=== PATIENT | female | born 1985 | race American Indian/Alaskan Native ===

== ENCOUNTER 2018-12-18 10:52 | Outpatient (CLI) | payer MEDICAID ==
--- NOTE | 2018-12-18 14:16 | Mammography Report ---
BILATERAL DIGITAL SCREENING MAMMOGRAM WITH CAD INDICATION: Baseline screening. TECHNIQUE: Digital bilateral 2D mammography was obtained in the craniocaudal and mediolateral obliq ue projections. This examination was interpreted with the benefit of Computer-Aided Detection analysi s. FINDINGS: Breast Density: The breasts are heterogeneously dense, which may obscure small masses. There is no evidence of dominant mass, suspicious calcifications or architectural distortion in eith er breast. IMPRESSION: BI-RADS Category 1: Negative. No mammographic evidence of malignancy. Recommend routine screening m ammography in one year. A "normal" or negative report should not discourage follow up or biopsy of a clinically significant f inding. A written summary of these findings will be mailed to the patient. The patient will be entered into a mammography reporting system which will generate a reminder letter for the patient's next appointmen t at the appropriate interval. The [employer] recommends yearly mammograms starting at age 40 and continuing as l mary as a woman is in good health. Breast MRI is recommended for women with an approximate 20-25% or greater lifetime risk of breast cancer, including women with a strong family history of breast or ova kiel cancer or who have been treated for Hodgkin's disease. Signer Name: Alfonso Payton MD Signed: 12/18/2018 2:12 PM Workstation Name: [id number]
== END 2018-12-18 10:53 | disposition home or self-care (01) ==
LOC: SPVWC 10:52
PROVIDERS: ATTEND Family Medicine
DX: Z12.31 Encounter for screening mammogram for malignant neoplasm of breast (principal)
CPT/HCPCS: 77067

== ENCOUNTER 2019-08-22 06:12 | Emergency (ER) | payer MEDICAID ==
[2019-08-22 08:05] VITALS: BP 162/106
--- NOTE | 2019-08-22 08:37 | Emergency Department Report ---
ED Headache HPI - General Chief Complaint: Pain General Stated Complaint: SHARP PAINS IN HEAD AND BODY Time Seen by Provider: 08/22/19 08:30 - History of Present Illness Initial Comments: This is a 34-year-old female with a history of migraine headache who presents the ED complaining of onset of headache that began about a month ago. Patient states that pain is become consistently aching and throbbing localized to the frontal and occipital regions. Patient states that she is not taking any medication because she does not like to take medication for pain. Patient states she is just been dealing with the pain. Patient states that she started experiencing some body aches and was unable to go to work this week. Patient does exhibit some nausea with no vomiting. she denies any head trauma, injuries, fall. Timing/Duration: other Quality: mild, achy, throbbing Head Injury Location: frontal, occipital Recent Head Trauma: no recent headache/trauma Associated Symptoms: denies symptoms, nasal congestion. denies: fatigue, facial pain, nausea/vomiting, stiff neck Allergies/Adverse Reactions: Allergies No Known Allergies Allergy (Unverified 08/24/13 07:43) Home Medications: Ambulatory Orders Pnv,Calcium 72/Iron/Folic Acid [Pnv Plus Multivit Tab] 1 tab PO DAILY 08/24/13 Butalb/Acetamin/Caff 50-325-40 [Fioricet 50-325-40] 1 tab PO Q8HR PRN #30 tablet 08/22/19 ED Review of Systems ROS: Stated complaint: SHARP PAINS IN HEAD AND BODY Other details as noted in HPI Comment: All other systems reviewed and negative Constitutional: no symptoms reported ED Past Medical Hx - Past Medical History Hx Hypertension: No Hx Congestive Heart Failure: No Hx Diabetes: No Hx Deep Vein Thrombosis: No Hx Renal Disease: No Hx Sickle Cell Disease: No Hx Seizures: No Hx Asthma: No Hx COPD: No Hx HIV: No - Surgical History Past Surgical History?: No - Social History Smoking Status: Never Smoker Substance Use Type: Alcohol - Medications Home Medications: Home Medications Medication Instructions Recorded Confirmed Last Taken Type Pnv,Calcium 72/Iron/Folic Acid 1 tab PO DAILY 08/24/13 08/24/13 08/18/13 History [Pnv Plus Multivit Tab] Butalb/Acetamin/Caff 50-325-40 1 tab PO Q8HR PRN #30 tablet 08/22/19 Unknown Rx [Fioricet 50-325-40] ED Physical Exam - General Limitations: No Limitations General appearance: alert, in no apparent distress - Head Head exam: Present: atraumatic, normocephalic - Eye Eye exam: Present: normal appearance - ENT ENT exam: Present: mucous membranes moist - Neck Neck exam: Present: normal inspection - Respiratory Respiratory exam: Present: normal lung sounds bilaterally. Absent: respiratory distress - Cardiovascular Cardiovascular Exam: Present: regular rate, normal rhythm. Absent: systolic murmur, diastolic murmur, rubs, gallop - GI/Abdominal GI/Abdominal exam: Present: soft, normal bowel sounds - Extremities Exam Extremities exam: Present: normal inspection - Back Exam Back exam: Present: normal inspection - Neurological Exam Neurological exam: Present: alert, oriented X3, CN II-XII intact, normal gait - Expanded Neurological Exam Expanded Patient oriented to: Present: person, place, time Speech: Present: fluid speech Cranial nerves: Facial Sensation: Normal Cerebellar function: Finger to Nose: Normal Sensory exam: Upper Extremity Light Touch: Normal, Lower Extremity Light Touch: Normal Best Eye Response (Tayler): (4) open spontaneously Best Motor Response (Tayler): (6) obeys commands Best Verbal Response (Tayler): (5) oriented Holliday Total: 15 - Psychiatric Psychiatric exam: Present: normal affect, normal mood - Skin Skin exam: Present: warm, dry, intact, normal color. Absent: rash ED Course Vital Signs 08/22/19 06:26 Temperature 98.3 F Pulse Rate 81 Respiratory 12 Rate Blood Pressure 162/106 O2 Sat by Pulse 100 Oximetry ED Medical Decision Making - Medical Decision Making This 34-year-old female with a history of migraine presents with onset of migraine headache. Patient states that she really does not like taking meds so she did not take Motrin. Or any other pain reliever. Patient states that Critical care attestation.: If time is entered above; I have spent that time in minutes in the direct care of this critically ill patient, excluding procedure time. ED Disposition Clinical Impression: Migraine headache with aura, Acute headache Disposition: DC-01 TO HOME OR SELFCARE Is pt being admited?: No Does the pt Need Aspirin: No Condition: Stable Instructions: Acute Headache (ED), Migraine Headache (ED) Additional Instructions: Make sure to follow up with the primary care physician as discussed. Take all your medications as you've been prescribed. If you have any worsening symptoms or develop new symptoms please return to ED immediately. Prescriptions: Butalb/Acetamin/Caff 50-325-40 [Fioricet 50-325-40] 1 tab PO Q8HR PRN #30 tablet PRN Reason: Headache Referrals: PRIMARY CARE, [Primary Care Provider] - 3-5 Days [facility] [Provider Group] - 3-5 Days [facility] [Outside] - 3-5 Days [facility] [Outside] - 3-5 Days Forms: Work/School Release Form(ED) Time of Disposition: 08:42
== END 2019-08-22 08:51 | disposition home or self-care (01) ==
LOC: ED 06:12
DX: G43.109 Migraine with aura, not intractable, without status migrainosus (principal); Z79.899 Other long term (current) drug therapy
CPT/HCPCS: 93005; 93010; 99282

== ENCOUNTER 2021-04-01 10:58 | Inpatient (IN) | payer MEDICAID ==
[2021-04-01 13:18] LABS: Hematocrit 31.2 % (30.3-42.9); Hemoglobin 9.9 gm/dl (10.1-14.3); Mean Corpuscular HGB Conc 32 % (30-34); Mean Corpuscular Volume 87 fl (79-97); Platelet Count 331 K/mm3 (140-440); Red Blood Count 3.59 M/mm3 (3.65-5.03)
[2021-04-01 13:27] LABS: Bilirubin,Urine NEG (Negative); Blood,Urine NEG (Negative); Color,Urine Yellow (Yellow); Mucus,Urine FEW /HPF
[2021-04-01 13:41] LABS: Alanine Aminotransferase 8 units/L (7-56); Uric Acid 4.6 mg/dL (3.5-7.6)
[2021-04-01] MEDS ORDERED: ePHEDrine SULFATE 50 MG/1 ML INJ IV PRN (15:02)
[2021-04-01] MEDS ORDERED: TERBUTALINE 1 MG/1 ML INJ SUB-Q PRN (15:02)
[2021-04-01] MEDS ORDERED: CARBOPROST TROMETHAMINE 250 MCG/1 ML INJ IM PRN (15:02)
[2021-04-01] MEDS ORDERED: ONDANSETRON 4 MG/2 ML INJ IV PRN (15:02)
[2021-04-01] MEDS ORDERED: fentaNYL 100 MCG/2 ML INJ IV PRN (15:02)
[2021-04-01] MEDS ORDERED: OXYTOCIN 10 UNIT/1 ML INJ IM PRN (15:02)
[2021-04-01] MEDS ORDERED: LOPERAMIDE 2 MG CAP PO PRN (15:02)
[2021-04-01] MEDS ORDERED: NALOXONE 0.4 MG/1 ML INJ IV PRN (15:02)
[2021-04-01] MEDS ORDERED: miSOPROStol 200 MCG TAB PR PRN (15:02)
[2021-04-01] MEDS ORDERED: ACETAMINOPHEN 325 MG TAB PO PRN (15:02)
[2021-04-01] MEDS ORDERED: PROMETHAZINE 25 MG RECT SUPP PR PRN (15:02)
[2021-04-01] MEDS ORDERED: LIDOCAINE (2%) 20 MG/1 ML VIAL 20 ML MDV INFILTRATI ONE (15:02)
[2021-04-01] MEDS ORDERED: MINERAL OIL 30 ML ORAL LIQD PO PRN (15:02)
[2021-04-01] MEDS ORDERED: BUTORPHANOL 2 MG/1 ML INJ IV PRN (15:02)
[2021-04-01] MEDS ORDERED: OXYTOCIN DRIP 30 UNITS/500 ML BAG IV SCH (16:00)
--- NOTE | 2021-04-01 16:18 | History and Physical Report ---
History of Present Illness Date of examination: 04/01/21 Date of admission: 04/01/21 10:59 Chief complaint: I'm here to be induced! History of present illness: Pt presents for IOL d/t elevated blood pressures @ term. Pt presented to her [facility] appointment on 03/31 and had an elevated blood pressure. Per Dr. Soto, the patient refused an IOL and left the office with her lab and next appointment slips. Of note, the patient has not been seen in the office since 33 weeks. When asked why, she stated that she "had a lot going on." EDC Calculations: 04/15/2021 Gestational Age: 38 weeks on admission. Past History : 3 Term Births: 2 Premature Births: 0 Living Children: 2 Para: 2 Mult. Births: 0 Prev : 0 Aborta: 0 Elect. Ab: 0 Spont. Ab: 0 Ectopics: 0 # 1 Delivery date: 06/2008 Weeks Gestation: term Delivery type: Anesthesia type: epidural Delivery location: [place] [facility] Sex: Male weight: 8-0 Comments: denies complications # 2 Delivery date: 08/24/2013 Weeks Gestation: 40 Delivery type: Vaginal Anesthesia type: epidural Delivery location: [facility] Infant Sex: female Comments: none Past Medical History: Reviewed history from 10/23/2012 and no changes required: Negative Past Medical History Past Surgical History: Reviewed history from 06/25/2020 and no changes required: negative Risk Factors: Smoked Tobacco Use: Never smoker Smokeless Tobacco Use: Never HIV high-risk behavior: no Caffeine use: 0 drinks per day Alcohol use: yes Type: occ Seatbelt use: 100 % Past Medical History Anesthesia Complications: negative Anemia: positive Autoimmune Disorder: negative Bleeding Disorder: negative Blood Transfusions: negative Breast Disease: negative Diabetes: negative Heart Disease: negative Hypertension: negative Hepatitis/Liver Disease: negative Kidney Disease/UTI: negative Neurologic/Epilepsy/Migraines: negative Phlebitis/Varicosities: negative Psychiatric: negative Pulmonary Disease/Asthma: negative Thyroid Disease: negative Hospitalizations: negative Surgery (Non-hvac service tech): negative Abnormal PAP: negative VANESA Exposure: negative Infertility: negative Uterine Anomaly: negative Uterine Surgery (not C/S): negative Other Gynecologic Problems: negative Social Hx: Patient is no drugs/no tobacco/occ etoh. Smoking History: Patient has never smoked. Infection History Hx of STD: none HIV Risk Eval: no Hepatitis B Risk Eval: low risk Personal hx. of genital herpes: no Partner hx. of genital herpes: no Rash, Viral, or Febrile illness since last LMP? no Varicella/Chicken Pox Status: Previous Disease TB Risk: no Genetic History Congenital Heart Defect: Mom: no Dad: no Shankar Disease: Mom: no Dad: no Thalassemia Mom: no Dad: no Neural Tube Defect Mom: no Dad: no Down's Syndrome Mom: no Dad: no Tray-Sachs Mom: no Dad: no Sickle Cell Disease/Trait Mom: no Dad: no Hemophilia Mom: no Dad: no Muscular Dystrophy Mom: no Dad: no Cystic Fibrosis Mom: no Dad: no Nai Chorea Mom: no Dad: no Mental Retardation Mom: no Dad: no Fragile X Mom: no Dad: no Other Genetic/Chromosomal Disorder Mom: no Dad: no Child w/other defect Mom: no Dad: no Enviromental Exposures Xray Exposure: no Medication, drug, or alcohol use since LMP: no Chemical/Other Exposure: no Exposure to Cat Liter: no Hx of Parvovirus (Fifth Disease): no Occupational Exposure to Children: none Active Medications: None Current Allergies (reviewed today): No known allergies Past History Past Medical History: no pertinent history Past Surgical History: no surgical history Family/Genetic History: none Social history: no significant social history - Obstetrical History Expected Date of Delivery: 04/15/21 Actual Gestation: 38 Week(s) 0 Day(s) : 3 Para: 2 Hx # Term Pregnancies: 2 Number of Pregnancies: 0 Spontaneous Abortions: 0 Induced : 0 Number of Living Children: 2 Medications and Allergies Allergies Allergy/AdvReac Type Severity Reaction Status Date / Time No Known Allergies Allergy Unverified 08/24/13 07:43 Home Medications Medication Instructions Recorded Confirmed Last Taken Type Pnv,Calcium 72/Iron/Folic Acid 1 tab PO DAILY 08/24/13 04/01/21 04/01/21 History [Pnv Plus Multivit Tab] Albuterol Mdi (or & Nicu Only) 1 puff IH PRN PRN 04/01/21 04/01/21 03/31/21 History [ProAir HFA Inhaler] Fluticasone [Flonase] 1 spray NS QDAY 04/01/21 04/01/21 03/28/21 History Active Meds: Active Medications Acetaminophen (Acetaminophen 325 Mg Tab) 1,000 mg PO Q6H PRN PRN Reason: Pain, Mild (1-3) Butorphanol Tartrate (Butorphanol 2 Mg/1 Ml Inj) 1 mg IV Q2H PRN PRN Reason: Pain, Moderate(4-6) LABOR PAIN Carboprost Tromethamine (Carboprost Tromethamine 250 Mcg/1 Ml Inj) 250 mcg IM ONCE PRN PRN Reason: Uterine Bleeding Ephedrine Sulfate (Ephedrine Sulfate 50 Mg/1 Ml Inj) 10 mg IV Q2M PRN PRN Reason: Hypotension Fentanyl (Fentanyl 100 Mcg/2 Ml Inj) 100 mcg IV Q2H PRN PRN Reason: Pain,Severe (7-10) LABOR PAIN Lactated Ringer's (Lactated Ringers) 1,000 mls @ 125 mls/hr IV DIRECT TIO Oxytocin/Sodium Chloride (Pitocin/Ns 30 Unit/500ml) 30 units in 500 mls @ 40 mls/hr IV TITR TIO; Protocol Loperamide HCl (Loperamide 2 Mg Cap) 2 mg PO ONCE PRN PRN Reason: give with Hemabate Mineral Oil (Mineral Oil 30 Ml Oral Liqd) 30 ml PO QHS PRN PRN Reason: Constipation Misoprostol (Misoprostol 200 Mcg Tab) 800 mcg LA ONCE PRN PRN Reason: Uterine Bleeding Naloxone HCl (Naloxone 0.4 Mg/1 Ml Inj) 0.1 mg IV Q2MIN PRN PRN Reason: Res Rate </= 8 or 02 SAT < 92% Ondansetron HCl (Ondansetron 4 Mg/2 Ml Inj) 4 mg IV Q8H PRN PRN Reason: Nausea And Vomiting Oxytocin (Oxytocin 10 Unit/1 Ml Inj) 10 unit IM ONCE PRN PRN Reason: Uterine Bleeding Promethazine HCl (Promethazine 25 Mg Rect Supp) 25 mg LA Q6H PRN PRN Reason: N/V if unable to take po Terbutaline Sulfate (Terbutaline 1 Mg/1 Ml Inj) 0.25 mg SUB-Q ONCE PRN PRN Reason: Hyperstimulation/Hypertonicity Review of Systems All systems: negative - Vital Signs Vital signs: Vital Signs Pulse Pulse Ox 89 99 04/01/21 11:38 04/01/21 11:38 Temp Pulse Resp BP Pulse Ox 100 H 144/71 99 04/01/21 16:17 04/01/21 16:05 04/01/21 16:17 Pt denies FERRERA, blurred vision, spots before her eyes, chest pain, shortness of breath, and upper abdominal pain. - Physical Exam Breasts: Positive: deferred Cardiovascular: Regular rate Lungs: Positive: Normal air movement Abdomen: Positive: normal appearance, soft Genitourinary (Female): Positive: normal external genitalia, normal perenium Vulva: both: normal Vagina: Positive: normal moisture Uterus: Positive: normal size Extremities: Positive: edema (Trace edema noted to bilateral lower extremities. ) - Obstetrical FHR: category 1 Uterine Contraction Monitor Mode: External Cervical Dilatation: 0 Cervical Effacement Percentage: 0 station: -3 Uterine Contraction Pattern: Irregular Uterine Tone Measurement Phase: Resting Uterine Contraction Intensity: Mild Results Result Diagrams: 04/01/21 13:10 04/01/21 11:30 Abnormal lab results 04/01/21 04/01/21 Range/Units 11:30 13:10 RBC 3.59 L (3.65-5.03) M/mm3 Hgb 9.9 L (10.1-14.3) gm/dl Lactate Dehydrogenase 234 H (91-180) units/L All other labs normal. GBS UNKNOWN HBsAg Screen Negative Negative *1 RPR Non Reactive Non Reactive *2 Rubella Antibodies, IgG 5.23 index Immune >0.99 *3 Non-immune <0.90 Equivocal 0.90 - 0.99 Immune >0.99 ABO Grouping A *4 Rh Factor Positive *5 Antibody Screen Negative Negative *6 Tests: (2) HB Solu + Rflx [facility] ([id number]) Hemoglobin (Hgb) Solubility Negative Negative *31 Tests: (3) HIV Ag/Ab with Reflex ([id number]) HIV Screen 4th Generation wRfx Non Reactive Non Reactive *32 Tests: (4) HCV Ab w/Rflx to Verification ([id number]) ! HCV Ab <0.1 s/co ratio 0.0-0.9 *33 Tests: (5) Comment: ([id number]) ! Comment: SPRCS *34 Non reactive HCV antibody screen is consistent with no HCV infection, unless recent infection is suspected or other evidence exists to indicate HCV infection. Assessment and Plan A: 35 y.o. @ 38 wks, IOL d/t gHTN. - Patient Problems (1) Gestational [-induced] hypertension without significant proteinuria, unspecified trimester Onset Date: ~03/31/21 Current Visit: Yes Status: Acute Plan to address problem: Admit to labor and delivery for IOL. Draw admission and pre e labs. Initiate IV. Monitor for s/sx of pre eclampsia. Anticipate . (2) with 38 completed weeks gestation Onset Date: ~04/01/21 Current Visit: Yes Status: Acute Plan to address problem: Continuous EFM to monitor status.
[2021-04-01] MEDS ORDERED: DINOPROSTONE 10 MG VAG SUPP VG ONE (18:01)
[2021-04-01] MEDS ORDERED: AMPICILLIN/NS 2 GM/100 ML 2 GM/100 ML BAG IV ONE (19:26)
[2021-04-01] MEDS: LACTATED RINGERS 1,000 ML IV SCH (19:47)
[2021-04-01] MEDS ORDERED: AMPICILLIN/NS 1 GM/50 ML 1 GM/50 ML BAG IV SCH (20:00)
[2021-04-02] MEDS ORDERED: diphenhydrAMINE 50 MG/ML VIAL IV ONE (03:52)
[2021-04-02] MEDS ORDERED: diphenhydrAMINE 50 MG/ML VIAL ONE (03:53)
--- NOTE | 2021-04-02 08:43 | Progress Note ---
Assessment and Plan Pt denies EFRRERA, vision changes, and RUQ pain. SVE performed and pt tolerated well. POC d/w pt. Questions encouraged and answered. Pt verbalizes understanding and agrees to POC. RN at bedside for assessment and discussion. Plan for am care and Pitocin per protocol. Anticipate . - Patient Problems (1) Gestational [-induced] hypertension without significant proteinuria, unspecified trimester Onset Date: ~03/31/21 Current Visit: Yes Status: Acute (2) with 38 completed weeks gestation Onset Date: ~04/01/21 Current Visit: Yes Status: Acute Subjective - Subjective Date of service: 04/02/21 Principal diagnosis: GHTN, IOL, GBS UNK Patient reports: movement normal, contractions, no new complaints, no loss of fluid, no vaginal bleeding Objective - Vital Signs Vital Signs: Vital Signs - 12hr 04/01/21 04/01/21 04/01/21 20:42 20:47 20:52 Temperature Pulse Rate 87 72 78 Respiratory Rate Blood Pressure Blood Pressure [Left] O2 Sat by Pulse 100 100 100 Oximetry O2 Sat by Pulse Oximetry [ Anterior Bilateral Throughout] 04/01/21 04/01/21 04/01/21 20:57 21:02 21:07 Temperature Pulse Rate 78 82 78 Respiratory Rate Blood Pressure Blood Pressure [Left] O2 Sat by Pulse 100 100 99 Oximetry O2 Sat by Pulse Oximetry [ Anterior Bilateral Throughout] 04/01/21 04/01/21 04/01/21 21:12 21:17 21:18 Temperature Pulse Rate 82 75 71 Respiratory Rate Blood Pressure 141/82 Blood Pressure [Left] O2 Sat by Pulse 100 98 Oximetry O2 Sat by Pulse Oximetry [ Anterior Bilateral Throughout] 04/01/21 04/01/21 04/01/21 21:22 21:27 21:32 Temperature Pulse Rate 79 81 84 Respiratory Rate Blood Pressure Blood Pressure [Left] O2 Sat by Pulse 99 100 98 Oximetry O2 Sat by Pulse Oximetry [ Anterior Bilateral Throughout] 04/01/21 04/01/21 04/01/21 21:37 21:42 21:47 Temperature Pulse Rate 79 79 79 Respiratory Rate Blood Pressure Blood Pressure [Left] O2 Sat by Pulse 99 100 98 Oximetry O2 Sat by Pulse Oximetry [ Anterior Bilateral Throughout] 04/01/21 04/01/21 04/01/21 21:52 21:57 22:02 Temperature Pulse Rate 87 81 83 Respiratory Rate Blood Pressure Blood Pressure [Left] O2 Sat by Pulse 99 99 98 Oximetry O2 Sat by Pulse Oximetry [ Anterior Bilateral Throughout] 04/01/21 04/01/21 04/01/21 22:07 22:24 22:29 Temperature Pulse Rate 79 100 H 89 Respiratory Rate Blood Pressure Blood Pressure [Left] O2 Sat by Pulse 98 96 98 Oximetry O2 Sat by Pulse Oximetry [ Anterior Bilateral Throughout] 04/01/21 04/01/21 04/01/21 22:34 22:39 22:44 Temperature Pulse Rate 89 87 81 Respiratory Rate Blood Pressure Blood Pressure [Left] O2 Sat by Pulse 97 99 98 Oximetry O2 Sat by Pulse Oximetry [ Anterior Bilateral Throughout] 04/01/21 04/01/21 04/01/21 22:49 22:54 22:59 Temperature Pulse Rate 80 85 88 Respiratory Rate Blood Pressure Blood Pressure [Left] O2 Sat by Pulse 99 98 98 Oximetry O2 Sat by Pulse Oximetry [ Anterior Bilateral Throughout] 04/01/21 04/01/21 04/01/21 23:04 23:09 23:14 Temperature Pulse Rate 80 76 82 Respiratory Rate Blood Pressure Blood Pressure [Left] O2 Sat by Pulse 99 99 99 Oximetry O2 Sat by Pulse Oximetry [ Anterior Bilateral Throughout] 04/01/21 04/01/21 04/01/21 23:19 23:24 23:29 Temperature Pulse Rate 78 92 H 73 Respiratory Rate Blood Pressure Blood Pressure [Left] O2 Sat by Pulse 100 99 97 Oximetry O2 Sat by Pulse Oximetry [ Anterior Bilateral Throughout] 04/01/21 04/01/21 04/01/21 23:33 23:34 23:39 Temperature 98 F Pulse Rate 87 73 Respiratory 18 Rate Blood Pressure Blood Pressure [Left] O2 Sat by Pulse 98 98 Oximetry O2 Sat by Pulse Oximetry [ Anterior Bilateral Throughout] 04/01/21 04/01/21 04/01/21 23:44 23:49 23:54 Temperature Pulse Rate 74 77 75 Respiratory Rate Blood Pressure Blood Pressure [Left] O2 Sat by Pulse 99 98 98 Oximetry O2 Sat by Pulse Oximetry [ Anterior Bilateral Throughout] 04/01/21 04/02/21 04/02/21 23:59 00:04 00:09 Temperature Pulse Rate 79 77 81 Respiratory Rate Blood Pressure Blood Pressure [Left] O2 Sat by Pulse 98 98 99 Oximetry O2 Sat by Pulse Oximetry [ Anterior Bilateral Throughout] 04/02/21 04/02/21 04/02/21 00:14 00:19 00:24 Temperature Pulse Rate 92 H 82 81 Respiratory Rate Blood Pressure Blood Pressure [Left] O2 Sat by Pulse 98 98 99 Oximetry O2 Sat by Pulse Oximetry [ Anterior Bilateral Throughout] 04/02/21 04/02/21 04/02/21 00:29 00:34 00:39 Temperature Pulse Rate 75 77 78 Respiratory Rate Blood Pressure Blood Pressure [Left] O2 Sat by Pulse 98 98 98 Oximetry O2 Sat by Pulse Oximetry [ Anterior Bilateral Throughout] 04/02/21 04/02/21 04/02/21 00:44 00:49 00:54 Temperature Pulse Rate 77 78 81 Respiratory Rate Blood Pressure Blood Pressure [Left] O2 Sat by Pulse 99 99 99 Oximetry O2 Sat by Pulse Oximetry [ Anterior Bilateral Throughout] 04/02/21 04/02/21 04/02/21 00:59 01:04 01:09 Temperature Pulse Rate 80 79 81 Respiratory Rate Blood Pressure Blood Pressure [Left] O2 Sat by Pulse 99 97 97 Oximetry O2 Sat by Pulse Oximetry [ Anterior Bilateral Throughout] 04/02/21 04/02/21 04/02/21 01:14 01:19 01:24 Temperature Pulse Rate 89 83 81 Respiratory Rate Blood Pressure Blood Pressure [Left] O2 Sat by Pulse 98 98 100 Oximetry O2 Sat by Pulse Oximetry [ Anterior Bilateral Throughout] 04/02/21 04/02/21 04/02/21 01:29 01:34 01:39 Temperature Pulse Rate 85 85 96 H Respiratory Rate Blood Pressure Blood Pressure [Left] O2 Sat by Pulse 100 99 98 Oximetry O2 Sat by Pulse Oximetry [ Anterior Bilateral Throughout] 04/02/21 04/02/21 04/02/21 01:44 01:49 01:54 Temperature Pulse Rate 81 85 82 Respiratory Rate Blood Pressure Blood Pressure [Left] O2 Sat by Pulse 98 97 98 Oximetry O2 Sat by Pulse Oximetry [ Anterior Bilateral Throughout] 04/02/21 04/02/21 04/02/21 01:59 02:04 02:09 Temperature Pulse Rate 79 80 82 Respiratory Rate Blood Pressure Blood Pressure [Left] O2 Sat by Pulse 98 98 98 Oximetry O2 Sat by Pulse Oximetry [ Anterior Bilateral Throughout] 04/02/21 04/02/21 04/02/21 02:14 02:17 02:19 Temperature Pulse Rate 84 91 H 78 Respiratory Rate Blood Pressure 138/77 Blood Pressure [Left] O2 Sat by Pulse 98 93 97 Oximetry O2 Sat by Pulse Oximetry [ Anterior Bilateral Throughout] 04/02/21 04/02/21 04/02/21 02:24 02:29 02:34 Temperature Pulse Rate 81 82 95 H Respiratory Rate Blood Pressure Blood Pressure [Left] O2 Sat by Pulse 96 97 98 Oximetry O2 Sat by Pulse Oximetry [ Anterior Bilateral Throughout] 04/02/21 04/02/21 04/02/21 02:39 02:44 02:49 Temperature Pulse Rate 70 75 75 Respiratory Rate Blood Pressure Blood Pressure [Left] O2 Sat by Pulse 97 98 98 Oximetry O2 Sat by Pulse Oximetry [ Anterior Bilateral Throughout] 04/02/21 04/02/21 04/02/21 02:54 02:59 03:00 Temperature 98.1 F Pulse Rate 84 88 Respiratory 16 Rate Blood Pressure Blood Pressure [Left] O2 Sat by Pulse 97 98 Oximetry O2 Sat by Pulse Oximetry [ Anterior Bilateral Throughout] 04/02/21 04/02/21 04/02/21 03:04 03:09 03:29 Temperature Pulse Rate 77 88 104 H Respiratory Rate Blood Pressure Blood Pressure [Left] O2 Sat by Pulse 98 98 98 Oximetry O2 Sat by Pulse Oximetry [ Anterior Bilateral Throughout] 04/02/21 04/02/21 04/02/21 03:34 03:39 03:44 Temperature Pulse Rate 83 84 76 Respiratory Rate Blood Pressure Blood Pressure [Left] O2 Sat by Pulse 98 98 98 Oximetry O2 Sat by Pulse Oximetry [ Anterior Bilateral Throughout] 04/02/21 04/02/21 04/02/21 03:49 03:50 03:54 Temperature 98.1 F Pulse Rate 77 82 Respiratory Rate Blood Pressure Blood Pressure [Left] O2 Sat by Pulse 98 98 Oximetry O2 Sat by Pulse Oximetry [ Anterior Bilateral Throughout] 04/02/21 04/02/21 04/02/21 03:59 04:04 04:09 Temperature Pulse Rate 89 80 88 Respiratory Rate Blood Pressure Blood Pressure [Left] O2 Sat by Pulse 99 99 98 Oximetry O2 Sat by Pulse Oximetry [ Anterior Bilateral Throughout] 04/02/21 04/02/21 04/02/21 04:14 04:19 04:24 Temperature Pulse Rate 82 84 83 Respiratory Rate Blood Pressure Blood Pressure [Left] O2 Sat by Pulse 99 98 98 Oximetry O2 Sat by Pulse Oximetry [ Anterior Bilateral Throughout] 04/02/21 04/02/21 04/02/21 04:29 04:34 04:39 Temperature Pulse Rate 73 82 78 Respiratory Rate Blood Pressure Blood Pressure [Left] O2 Sat by Pulse 99 98 97 Oximetry O2 Sat by Pulse Oximetry [ Anterior Bilateral Throughout] 04/02/21 04/02/21 04/02/21 04:44 04:56 05:01 Temperature Pulse Rate 81 83 71 Respiratory Rate Blood Pressure Blood Pressure [Left] O2 Sat by Pulse 97 95 99 Oximetry O2 Sat by Pulse Oximetry [ Anterior Bilateral Throughout] 04/02/21 04/02/21 04/02/21 05:06 05:11 05:16 Temperature Pulse Rate 76 67 76 Respiratory Rate Blood Pressure Blood Pressure [Left] O2 Sat by Pulse 97 99 99 Oximetry O2 Sat by Pulse Oximetry [ Anterior Bilateral Throughout] 04/02/21 04/02/21 04/02/21 05:21 05:26 05:31 Temperature Pulse Rate 83 72 70 Respiratory Rate Blood Pressure Blood Pressure [Left] O2 Sat by Pulse 99 97 98 Oximetry O2 Sat by Pulse Oximetry [ Anterior Bilateral Throughout] 04/02/21 04/02/21 04/02/21 05:36 05:41 05:46 Temperature Pulse Rate 71 67 70 Respiratory Rate Blood Pressure Blood Pressure [Left] O2 Sat by Pulse 98 98 98 Oximetry O2 Sat by Pulse Oximetry [ Anterior Bilateral Throughout] 04/02/21 04/02/21 04/02/21 05:51 05:56 06:01 Temperature Pulse Rate 73 75 78 Respiratory Rate Blood Pressure Blood Pressure [Left] O2 Sat by Pulse 98 98 97 Oximetry O2 Sat by Pulse Oximetry [ Anterior Bilateral Throughout] 04/02/21 04/02/21 04/02/21 06:06 06:11 06:16 Temperature Pulse Rate 77 78 70 Respiratory Rate Blood Pressure Blood Pressure [Left] O2 Sat by Pulse 97 97 98 Oximetry O2 Sat by Pulse Oximetry [ Anterior Bilateral Throughout] 04/02/21 04/02/21 04/02/21 06:19 06:21 06:26 Temperature Pulse Rate 73 70 91 H Respiratory Rate Blood Pressure 143/90 Blood Pressure [Left] O2 Sat by Pulse 97 100 Oximetry O2 Sat by Pulse Oximetry [ Anterior Bilateral Throughout] 04/02/21 04/02/21 04/02/21 06:31 06:36 06:41 Temperature Pulse Rate 69 69 74 Respiratory Rate Blood Pressure Blood Pressure [Left] O2 Sat by Pulse 99 98 98 Oximetry O2 Sat by Pulse Oximetry [ Anterior Bilateral Throughout] 04/02/21 04/02/21 04/02/21 06:46 06:51 06:56 Temperature Pulse Rate 74 70 79 Respiratory Rate Blood Pressure Blood Pressure [Left] O2 Sat by Pulse 99 98 98 Oximetry O2 Sat by Pulse Oximetry [ Anterior Bilateral Throughout] 04/02/21 04/02/21 04/02/21 07:01 07:02 07:06 Temperature Pulse Rate 79 98 H 98 H Respiratory Rate Blood Pressure Blood Pressure [Left] O2 Sat by Pulse 98 93 94 Oximetry O2 Sat by Pulse Oximetry [ Anterior Bilateral Throughout] 04/02/21 04/02/21 04/02/21 07:11 07:16 07:18 Temperature Pulse Rate 81 87 86 Respiratory Rate Blood Pressure 131/82 Blood Pressure [Left] O2 Sat by Pulse 97 97 Oximetry O2 Sat by Pulse Oximetry [ Anterior Bilateral Throughout] 04/02/21 04/02/21 04/02/21 07:21 07:26 07:31 Temperature Pulse Rate 69 69 72 Respiratory Rate Blood Pressure Blood Pressure [Left] O2 Sat by Pulse 98 98 97 Oximetry O2 Sat by Pulse Oximetry [ Anterior Bilateral Throughout] 04/02/21 04/02/21 04/02/21 07:36 07:41 07:46 Temperature Pulse Rate 70 77 80 Respiratory Rate Blood Pressure Blood Pressure [Left] O2 Sat by Pulse 97 97 97 Oximetry O2 Sat by Pulse Oximetry [ Anterior Bilateral Throughout] 04/02/21 04/02/21 04/02/21 07:51 07:56 08:00 Temperature 98.2 F Pulse Rate 77 91 H 77 Respiratory 16 Rate Blood Pressure 146/84 Blood Pressure 146/84 [Left] O2 Sat by Pulse 96 97 98 Oximetry O2 Sat by Pulse Oximetry [ Anterior Bilateral Throughout] 04/02/21 04/02/21 08:01 08:05 Temperature Pulse Rate 86 Respiratory Rate Blood Pressure Blood Pressure [Left] O2 Sat by Pulse 99 Oximetry O2 Sat by Pulse 99 Oximetry [ Anterior Bilateral Throughout] - Exam Breasts: deferred Cardiovascular: Regular rate Lungs: Normal air movement Abdomen: Present: normal appearance, soft. Absent: tenderness Vulva: both: normal Uterus: Present: normal, other (gravid) FHR: auscultation normal, category 1 Uterine Contraction Monitor Mode: Palpation Cervical Dilatation: 2 Cervical Effacement Percentage: 40 station: -4 Uterine Contraction Pattern: Irregular Uterine Tone Measurement Phase: Resting Extremities: normal - Labs Labs: Abnormal Labs 04/01/21 04/01/21 11:30 13:10 RBC 3.59 L Hgb 9.9 L Lactate Dehydrogenase 234 H Laboratory Results - last 24 hr 04/01/21 04/01/21 04/01/21 11:30 11:30 12:30 WBC RBC Hgb Hct MCV MCH MCHC RDW Plt Count Creatinine 0.6 Estimated GFR > 60 Uric Acid 4.6 AST 16 ALT 8 Lactate Dehydrogenase 234 H Urine Color Urine Turbidity Urine pH Ur Specific [place] Urine Protein Urine Glucose (UA) Urine Ketones Urine Blood Urine Nitrite Urine Bilirubin Urine Urobilinogen Ur Leukocyte Esterase Urine WBC (Auto) Urine RBC (Auto) U Epithel Cells (Auto) Urine Mucus Syphilis IgG Antibody Nonreactive Blood Type Antibody Screen 04/01/21 04/01/21 04/01/21 12:30 13:08 13:10 WBC 7.8 RBC 3.59 L Hgb 9.9 L Hct 31.2 MCV 87 MCH 28 MCHC 32 RDW 15.0 Plt Count 331 Creatinine Estimated GFR Uric Acid AST ALT Lactate Dehydrogenase Urine Color Yellow Urine Turbidity Clear Urine pH 6.0 Ur Specific [place] 1.023 Urine Protein 30 mg/dl Urine Glucose (UA) Neg Urine Ketones 20 Urine Blood Neg Urine Nitrite Neg Urine Bilirubin Neg Urine Urobilinogen 4.0 Ur Leukocyte Esterase Neg Urine WBC (Auto) 1.0 Urine RBC (Auto) 3.0 U Epithel Cells (Auto) 5.0 Urine Mucus Few Syphilis IgG Antibody Blood Type A POSITIVE Antibody Screen Positive
[2021-04-02] MEDS: LACTATED RINGERS 1,000 ML IV SCH (09:54)
--- NOTE | 2021-04-02 15:23 | Event Note ---
Date: 04/02/21 Pt reports desires for epidural and SVE. SVE performed . RN at bedside and present for assessment. POC discussed. Cat 1 FHT's noted at this time. Continuous monitoring advised. RN verbalizes understanding. Anticipate
[2021-04-02] MEDS ORDERED: ePHEDrine SULFATE 50 MG/1 ML INJ IV PRN (15:59)
[2021-04-02] MEDS ORDERED: NALOXONE 2 MG/2 ML INJ IV PRN (15:59)
[2021-04-02] MEDS ORDERED: fentaNYL-BUPIV 2 MCG/ML-0.125% 200 MCG/100 ML BAG EPIDURAL SCH (16:00)
--- NOTE | 2021-04-02 16:54 | Progress Note ---
Labor Epidural - Labor Epidural Start Time: 16:09 Stop Time: 16:38 Performed by:: HERLINDA RUSSELL Procedure: Patient is requesting a laboring epidural for laboring pain. Patient IDed, H&P reviewed, all questions and concerns were answered, and consent was signed. Timeout was performed at bedside. Patient in sitting position. Sterile prep and drape was performed. [3] ml of 1% lidocaine skin wheal at L[3]- L [4]. 18- gauge Tuohy epidural needle was advanced to loss of resistance with saline technique 8cm x 3 attempts. Negative CSF negative blood. Epidural catheter advanced to [12] centimeters. [NEGATIVE] Aspiration [NEGATIVE] test dose. Sterile dressing applied. Patient tolerated procedure.
--- NOTE | 2021-04-02 18:00 | Procedure Note ---
OB Delivery Note - Delivery Date of Delivery: 04/02/21 Spray Gun Repairer: DANIEL CAMACHO Estimated blood loss: 100cc - Vaginal Delivery presentation: vertex Delivery position: OA Intrapartum events: gestational hypertension Delivery induction: cervidil Delivery augmentation: pitocin Delivery monitor: external FHT, external uterine Route of delivery: Delivery placenta: spontaneous Delivery cord: 3 umbilical vessels Episiotomy: none Delivery laceration: none Anesthesia: epidural Delivery comments: BROOK present for delivery. Viable male delivered over intact perineum and placed on mother's abdomen. Terminal meconium noted. Bulb suction and stimulation performed. 3 vessel umbilical cord clamped and cut. Placenta delivered spontan eously and intact. No repair needed. EBL 100mL. Fundus firm with scant lochia. Pericare performed. Counts correct x2. - Infant A at 1 minute: 8 at 5 minutes: 9 Gender: Male
--- NOTE | 2021-04-02 19:27 | Post Anesthesia Evaluation ---
- Post Anesthesia Evaluation Patient Participated: Yes Airway Patent: Yes Stable Respiratory Function: Yes Nausea/Vomiting: No Temp > 96.8F: Yes Pain Manageable: Yes Adequeate Hydration: Yes Anesthesia Complications: No Block Receding Appropriately: Yes Patient on Ventilator: No
[2021-04-02] MEDS ORDERED: PROMETHAZINE 25 MG TAB PO PRN (20:44)
[2021-04-02] MEDS ORDERED: WITCH HAZEL/ GLYCERIN PAD TP PRN (20:44)
[2021-04-02] MEDS ORDERED: oxyCODONE /ACETAMINOPHEN 5-325MG TAB PO PRN (20:44)
[2021-04-02] MEDS ORDERED: diphenhydrAMINE 25 MG CAP PO PRN (20:44)
[2021-04-02] MEDS ORDERED: ONDANSETRON 4 MG/2 ML INJ IV PRN (20:44)
[2021-04-02] MEDS ORDERED: HYDROCORTISONE 25 MG RECTAL SUPP PR PRN (20:44)
[2021-04-02] MEDS ORDERED: ACETAMINOPHEN 325 MG TAB PO PRN (20:44)
[2021-04-02] MEDS ORDERED: LANOLIN/ZINC/DIMETHICONE (LANSINOH) 7 GM TP PRN (20:44)
[2021-04-02] MEDS ORDERED: MAGNESIUM HYDROXIDE (MOM) ORAL LIQD UDC PO PRN (20:44)
[2021-04-02] MEDS ORDERED: BENZOCAINE/MENTHOL 20/0.5% TOP SPRAY 56 GM TP PRN (20:44)
[2021-04-02] MEDS: IBUPROFEN 800 MG TAB PO SCH (21:09)
[2021-04-02] MEDS: FERROUS SULFATE 325 MG TAB PO SCH (21:09)
[2021-04-02] MEDS: DOCUSATE SODIUM 100 MG CAP PO SCH (21:09)
[2021-04-02] MEDS: SENNOSIDES/DOCUSATE SODIUM 8.6/50 MG TAB PO SCH (23:44)
[2021-04-03] MEDS: IBUPROFEN 800 MG TAB PO SCH (05:44)
[2021-04-03] MEDS ORDERED: TETANUS,DIPH,PERTUSS(ACELL) VACCINE 0.5 ML SYRINGE IM ONE (06:00)
[2021-04-03 06:21] LABS: Hematocrit 26.9 % (30.3-42.9); Hemoglobin 8.9 gm/dl (10.1-14.3)
[2021-04-03] MEDS ORDERED: PRENATAL VIT27-FE FUMARATE-FOLIC ACID VIT TAB PO SCH (10:00)
--- NOTE | 2021-04-03 12:00 | Progress Note ---
Assessment and Plan - Patient Problems (1) Gestational [-induced] hypertension without significant proteinuria, unspecified trimester Onset Date: ~03/31/21 Current Visit: Yes Status: Acute Plan to address problem: Normtensive with occasional mild range BP Will not initiate antihypertensive at this time Will continue to monitor BP Consider discharge this PM (2) Normal spontaneous vaginal delivery Current Visit: No Status: Acute Plan to address problem: Continue routine care Will consider discharge home this evening. Subjective - Subjective Date of service: 04/03/21 Principal diagnosis: GHTN, IOL, GBS UNK Interval history: Patient PPD #1 s/p . Notes bilateral leg swelling that is tight, but not painful. Tolerating diet, ambulating, and voiding without difficulty. Breast and bottle feeding. Baby at beside doing well. Denies chest pain, SOB, FERRERA, and RUQ/epigastric pain. POC discussed. Will continue to monitor BP and consider discharge home this evening. Patient reports: appetite normal, voiding normally, pain well controlled, ambulating normally : doing well Objective - Vital Signs Latest vital signs: Vital Signs Temp Pulse Resp BP BP Pulse Ox Pulse Ox 04/03/21 07:54 98.2 F 82 18 140/81 98 04/03/21 06:20 98.4 F 74 18 126/65 96 04/03/21 00:37 97.6 F 84 16 136/76 100 04/02/21 20:45 98.3 F 71 18 138/89 99 99 04/02/21 19:20 73 100 04/02/21 19:19 80 148/81 04/02/21 19:15 68 100 04/02/21 19:10 72 99 04/02/21 19:05 70 100 04/02/21 19:04 68 136/76 04/02/21 19:00 66 100 04/02/21 18:55 72 100 04/02/21 18:50 65 100 04/02/21 18:49 78 119/68 04/02/21 18:45 76 100 04/02/21 18:40 87 100 04/02/21 18:35 71 99 04/02/21 18:34 116/68 04/02/21 18:30 72 99 04/02/21 18:25 75 98 04/02/21 18:20 76 100 04/02/21 18:19 72 111/60 04/02/21 18:15 74 100 04/02/21 18:10 74 99 04/02/21 18:05 76 99 04/02/21 18:03 73 107/61 04/02/21 18:00 70 98 04/02/21 17:58 71 106/61 04/02/21 17:55 81 99 04/02/21 17:53 80 110/64 04/02/21 17:50 75 97 04/02/21 17:48 96 H 121/70 04/02/21 17:45 80 99 04/02/21 17:43 78 122/67 04/02/21 17:40 91 H 125/69 99 04/02/21 17:36 80 85 04/02/21 17:35 87 130/70 99 04/02/21 17:30 90 99 04/02/21 17:28 78 129/69 04/02/21 17:25 74 99 04/02/21 17:23 69 128/73 04/02/21 17:20 69 99 04/02/21 17:19 73 138/76 04/02/21 17:15 71 100 04/02/21 17:14 72 132/80 04/02/21 17:10 69 100 04/02/21 17:08 69 138/79 04/02/21 17:05 76 100 04/02/21 17:04 76 148/89 04/02/21 17:00 67 98 04/02/21 16:59 71 150/87 04/02/21 16:55 72 100 04/02/21 16:53 73 152/89 04/02/21 16:50 80 96 04/02/21 16:49 78 144/85 04/02/21 16:45 79 98 04/02/21 16:44 93 H 146/105 04/02/21 16:40 79 99 04/02/21 16:39 81 82 L 04/02/21 16:38 90 162/85 04/02/21 16:36 93 H 173/95 04/02/21 16:35 94 H 100 04/02/21 16:30 79 98 04/02/21 16:25 79 98 04/02/21 16:20 79 99 04/02/21 16:15 83 99 04/02/21 16:10 86 99 04/02/21 15:54 89 100 04/02/21 15:53 83 88 04/02/21 15:49 96 H 94 04/02/21 15:45 77 82 L 04/02/21 15:44 91 H 100 04/02/21 15:39 91 H 100 04/02/21 12:29 90 98 04/02/21 12:24 94 H 100 04/02/21 12:19 89 98 04/02/21 12:15 78 136/79 04/02/21 12:14 75 98 04/02/21 12:09 74 98 04/02/21 12:04 71 98 04/02/21 11:59 76 98 Intake and Output 04/02/21 04/03/21 04/03/21 23:59 07:59 15:59 Intake Total 220 240 Balance 220 240 Intake: Oral 240 Intake, Free Water 220 Other: Total, Intake Amount 240 # Voids Void 1 1 Estimated Blood Loss 100 - Labs Labs: Abnormal lab results 04/03/21 Range/Units 06:08 Hgb 8.9 L (10.1-14.3) gm/dl Hct 26.9 L (30.3-42.9) %
--- NOTE | 2021-04-03 16:38 | Discharge Summary ---
Providers - Providers Date of Admission: 04/01/21 10:59 Date of discharge: 04/03/21 Attending physician: RAJEEV JAMES 04/02/21 20:44 Consult to Business Change Manager [CONS] Routine Reason For Exam: assistance with , SNS Primary care physician: RAJEEV JAMES Hospitalization Reason for admission: Induction of labor Condition: Stable Procedures: spontaneous vaginal delivery Hospital course: Patient presented for IOL secondary to gHTN. of male . See delivery note for additional details. Routine course. Blood pressures normotensive with intermittent mild range pressures, not requiring antihypertensive. Discharged home in stable condition on PPD #1. Disposition: 01 HOME / SELF CARE / HOMELESS Final Discharge Diagnosis (Prints w/discharge instructions): Spontaneous vaginal delivery. Gestational Hypertension - Discharge Diagnoses (1) Gestational [-induced] hypertension without significant proteinuria, unspecified trimester Status: Acute (2) Normal spontaneous vaginal delivery Status: Acute Core Measure Documentation - Palliative Care Palliative Care/ Comfort Measures: Not Applicable - Core Measures Any of the following diagnoses?: none Exam - Constitutional Vitals: Temp Pulse Resp BP Pulse Ox 98.2 F 84 18 135/80 99 04/03/21 13:01 04/03/21 13:01 04/03/21 13:01 04/03/21 13:01 04/03/21 12:22 General appearance: Present: no acute distress - Respiratory Respiratory effort: normal - Extremities Extremity abnormal: edema (trace) - Abdominal General gastrointestinal: Present: soft, non-tender Plan Activity: no restrictions (Nothing in the vagina for 6 weeks. ) Weight Bearing Status: Full Weight Bearing Diet: regular Plan of Treatment: Call your doctor immediately for: * Fever > 100.5 * Heavy vaginal bleeding ( >1 pad per hour) * Severe persistent headache * Shortness of breath * Reddened, hot, painful area to leg or breast *Return to clinic in 1 week for blood pressure check. call office to schedule appointment. * No sex for the next 6 weeks. Follow up with: RAJEEV JAMES MD [Primary Care Provider] - 7 Days Prescriptions: Docusate Sodium [Colace] 100 mg PO BID #60 capsule Prenat Vit 17/Iron/Folic/Om3,6 [Elite-Ob 400 Capsule] 1 each PO DAILY #30 capsule Ferrous Sulfate [Feosol 325 MG tab] 325 mg PO QDAY #30 tablet Lidocaine/Prilocaine [Lidocaine-Prilocaine Cream] 5 gm TP ONCE 1 Days cream..g. Ibuprofen [Motrin 800 MG tab] 800 mg PO Q8HR #30 tablet
[2021-04-04] MEDS: IBUPROFEN 800 MG TAB PO SCH ×3 (00:40→13:54)
[2021-04-04] MEDS: DOCUSATE SODIUM 100 MG CAP PO SCH ×2 (00:41→10:23)
[2021-04-04] MEDS: FERROUS SULFATE 325 MG TAB PO SCH ×2 (00:41→10:24)
[2021-04-04] MEDS: SENNOSIDES/DOCUSATE SODIUM 8.6/50 MG TAB PO SCH ×2 (05:22→13:54)
--- NOTE | 2021-04-04 09:35 | Event Note ---
Date: 04/04/21 Patient discharge held due to baby not being discharged. Patient doing well but notes swelling continues and is pain on her left lower extremity. LE dopplers ordered stat. If WNL will continue with D/C home this afternoon.
[2021-04-04 10:29] VITALS: BP 124/81
--- NOTE | 2021-04-04 15:46 | Vascular Lab Report ---
DUPLEX DOPPLER LOWER EXTREMITY VEINS, BILATERAL INDICATION / CLINICAL INFORMATION: lower extremtity swelling and pain. TECHNIQUE: Duplex doppler imaging was performed through the veins of both lower extremities using venous hunter zaire and other maneuvers. COMPARISON: None available. FINDINGS: RIGHT COMMON FEMORAL VEIN: Negative. RIGHT FEMORAL VEIN: Negative. RIGHT POPLITEAL VEIN: Negative. RIGHT CALF VEINS: Negative. LEFT COMMON FEMORAL VEIN: Negative. LEFT FEMORAL VEIN: Negative. LEFT POPLITEAL VEIN: Negative. LEFT CALF VEINS: Negative. ADDITIONAL FINDINGS: None. IMPRESSION: 1. No sonographic evidence for DVT in either lower extremity. Signer Name: Vickey Gonzalez MD Signed: 04/04/2021 3:41 PM Workstation Name: [id number]
== END 2021-04-04 18:30 | disposition home or self-care (01) | DRG 775 ==
LOC: TRG 10:58 → APU 10:59 → TRG 15:11 → LD 15:18 → OB 04-02 20:34
PROVIDERS: ADMIT Obstetrics & Gynecology; ATTEND Obstetrics & Gynecology
PROC: 10E0XZZ Delivery of Products of Conception, External Approach (ICD-10-PCS; principal; 2021-04-02)
PROC: 3E0P7VZ Introduction of Hormone into Female Reproductive, Via Natural or Artificial Opening (ICD-10-PCS; 2021-04-02)
PROC: 3E0R3BZ Introduction of Anesthetic Agent into Spinal Canal, Percutaneous Approach (ICD-10-PCS; 2021-04-02)
PROC: 00HU33Z Insertion of Infusion Device into Spinal Canal, Percutaneous Approach (ICD-10-PCS; 2021-04-02)
PROC: 3E0234Z Introduction of Serum, Toxoid and Vaccine into Muscle, Percutaneous Approach (ICD-10-PCS; 2021-04-03)
DX: O13.4 Gestational [pregnancy-induced] hypertension without significant proteinuria, complicating childbirth (principal); Z3A.38 38 weeks gestation of pregnancy; Z37.0 Single live birth; Z20.822 Contact with and (suspected) exposure to COVID-19; Z23 Encounter for immunization
CPT/HCPCS: 36415; 59200; 81001; 82565; 83615; 84450; 84460; 84550; 85014; 85018; 85027; 86592; 86850; 86870; 86900; 86901; 93970; G0378; J1200; J2590; J7120; U0003